=== PATIENT | male | born 1995 | race Caucasian/White ===

== ENCOUNTER 2016-09-20 21:45 | Inpatient (IN) | payer OTHER ==
[2016-09-20] MEDS ORDERED: SODIUM CHLORIDE 0.9% 1,000 ML IV STA (22:05)
[2016-09-20] MEDS ORDERED: METOCLOPRAMIDE 5 MG/ML 2 ML VIAL IVP STA (22:05)
[2016-09-20 22:16] LABS: Glucose,Whole Blood 421 mg/dL (75-99)
[2016-09-20 22:39] LABS: Basophils % (A) 0 %; CH 29.8; Eosinophils % (A) 1 %; HCT 53.7 % (39.0-53.0); HDW 2.97; HGB 17.2 gm/dL (13.0-17.5); Luc % (Auto) 1; Lymphocytes # (A) 1.6 k/uL (1.0-4.8); Lymphocytes % (A) 17 %; MCV 90.8 fL (80.0-100.0); Mean Platelet Volume 8.3; Monocytes # (A) 0.4 k/uL (0-1.0); Monocytes % (A) 4 %; Neutrophils # (A) 7.1 k/uL (1.3-7.7); Neutrophils % (A) 77 %; RBC 5.91 m/uL (4.30-5.90); RDW 15.4 % (11.5-15.5); WBC 9.3 k/uL (3.8-10.6); WBC (Perox) 9.77
[2016-09-20 22:54] LABS: ALT 45 U/L (21-72); AST 14 U/L (17-59); Alkaline Phosphatase 191 U/L (38-126); Amylase 46 U/L (30-110); Anion Gap 30 mmol/L; Blood Urea Nitrogen 12 mg/dL (9-20); Chloride 104 mmol/L (98-107); Glucose 440 mg/dL (74-99); Non-African American GFR(MDRD) >60 (>60 ml/min/1.73 sqM); Potassium 4.5 mmol/L (3.5-5.1); Sodium 139 mmol/L (137-145); Total Bilirubin 0.6 mg/dL (0.2-1.3); Total Protein 8.5 g/dL (6.3-8.2)
--- NOTE | 2016-09-20 23:15 | XR ---
EXAM: XR Abdomen, 1 View CLINICAL HISTORY: Reason: pain TECHNIQUE: Frontal supine view of the abdomen/pelvis. COMPARISON: No relevant prior studies available. FINDINGS: Gastrointestinal tract: Stool and gas throughout the colon. No dilation. Bones/joints: Unremarkable. IMPRESSION: Stool and gas throughout the colon. No acute disease or bowel obstruction.
[2016-09-20 23:23] LABS: Carbon Dioxide <5 mmol/L (22-30)
--- NOTE | 2016-09-20 23:23 | ED ---
Nausea/Vomiting/Diarrhea HPI <Andrew Candelario - Last Filed: 09/21/16 00:17> - General Source: patient Mode of arrival: ambulatory Limitations: no limitations <Joyce Suh - Last Filed: 09/21/16 00:36> - General Chief complaint: Nausea/Vomiting/Diarrhea Stated complaint: trouble digesting food/vomiting Time Seen by Provider: 09/20/16 21:58 - History of Present Illness Initial comments: 20-year-old male patient presents to emergency department today for complaints of nausea, vomiting, and general malaise for the last 2 weeks. Patient states that he feels like his stomach just feels up and causes him to vomit. Patient states that he has just felt generally unwell, states that he has been in a "mental fog", has felt very thirsty, and has had a dry mouth. Patient denies any blood in his vomit. Patient states he has been quite constipated, he has gone days sometimes without bowel movements. He states that his last vomiting was yesterday is very small and hard. He denies any fever, chills, headaches, dizziness, chest pain, back pain, shortness of breath, abdominal pain, hematuria , dysuria, urinary urgency or urinary urgency. He denies any dark, bloody, or black stools. (Joyce Suh) - Related Data Home Medications Medication Instructions Recorded Confirmed Multimin Plus 7 drops PO AC-TID 09/20/16 09/20/16 Phosphatidylcholine 100 mg PO BID 09/20/16 09/20/16 Pure Herbs-Sweet Root 40 drops PO AC-TID 09/20/16 09/20/16 Systemic Lb Liver/Gallbladder 1 cap PO AC-TID 09/20/16 09/20/16 Allergies Allergy/AdvReac Type Severity Reaction Status Date / Time No Known Allergies Allergy Verified 09/20/16 22:59 Review of Systems ROS Other: All systems not noted in ROS Statement are negative. <Andrew Cnadelario - Last Filed: 09/21/16 00:17> ROS Other: All systems not noted in ROS Statement are negative. <Joyce Suh - Last Filed: 09/21/16 00:36> ROS Statement: Those systems with pertinent positive or pertinent negative responses have been documented in the HPI. Past Medical History Past Medical History: No Reported History History of Any Multi-Drug Resistant Organisms: None Reported Past Surgical History: No Surgical Hx Reported Past Psychological History: No Psychological Hx Reported Smoking Status: Never smoker Past Alcohol Use History: Occasional Past Drug Use History: None Reported <Joyce Suh - Last Filed: 09/21/16 00:36> General Exam Limitations: no limitations General appearance: alert, in no apparent distress Head exam: Present: atraumatic, normocephalic, normal inspection Eye exam: Present: normal appearance, PERRL, EOMI. Absent: scleral icterus, conjunctival injection, periorbital swelling ENT exam: Present: normal exam, mucous membranes moist Neck exam: Present: normal inspection. Absent: tenderness, meningismus, lymphadenopathy Respiratory exam: Present: normal lung sounds bilaterally, respiratory distress (Labored breathing). Absent: wheezes, rales, rhonchi, stridor Cardiovascular Exam: Present: normal rhythm, tachycardia, normal heart sounds. Absent: systolic murmur, diastolic murmur, rubs, gallop, clicks GI/Abdominal exam: Present: soft, normal bowel sounds. Absent: distended, tenderness, guarding, rebound, rigid Extremities exam: Present: normal inspection, full ROM, normal capillary refill. Absent: tenderness, pedal edema, joint swelling, calf tenderness Back exam: Present: normal inspection Neurological exam: Present: alert, oriented X3, CN II-XII intact Psychiatric exam: Present: normal affect, normal mood Skin exam: Present: warm, dry, intact, normal color. Absent: rash <Joyce Suh - Last Filed: 09/21/16 00:36> Course <Andrew Candelario - Last Filed: 09/21/16 00:17> <Joyce Suh - Last Filed: 09/21/16 00:36> Vital Signs 09/20/16 09/20/16 09/20/16 21:51 23:09 23:55 Temperature 99.6 F 99.8 F H 99.4 F Pulse Rate 116 H 101 H 101 H Respiratory 20 18 20 Rate Blood Pressure 122/59 126/67 125/67 O2 Sat by Pulse 99 100 99 Oximetry - Reevaluation(s) Reevaluation #1: 09/21/16 00:17 I proceeded [id number] examination the patient did discuss findings with the patient and family. Patient will be admitted. I did discuss case with the admitting service. (Andrew Candelario) Medical Decision Making - Lab Data Result diagrams: 09/20/16 22:20 09/20/16 22:20 <Andrew Candelario - Last Filed: 09/21/16 00:17> - Lab Data Result diagrams: 09/20/16 22:20 09/20/16 22:20 - Radiology Data Radiology results: report reviewed, image reviewed <Joyce Suh - Last Filed: 09/21/16 00:36> - Medical Decision Making 20-year-old male patient presented to emergency department today for evaluation of nausea, vomiting, and general malaise for the last 2 weeks. Upon presentation capillary blood glucose was 421. Patient has no known history of diabetes. Blood work did show glucose level of 440, anion gap of 30. Patient will be admitted to Dr. Nance with fluid as resuscitation and insulin drip. Did discuss admission with patient and his parents. (Joyce Suh) - Lab Data Lab Results 09/20/16 09/20/16 09/20/16 Range/Units 22:13 22:20 22:20 WBC 9.3 (3.8-10.6) k/uL RBC 5.91 H (4.30-5.90) m/uL Hgb 17.2 (13.0-17.5) gm/dL Hct 53.7 H (39.0-53.0) % MCV 90.8 (80.0-100.0) fL MCH 29.0 (25.0-35.0) pg MCHC 32.0 (31.0-37.0) g/dL RDW 15.4 (11.5-15.5) % Plt Count 173 (150-450) k/uL Neutrophils % 77 % Lymphocytes % 17 % Monocytes % 4 % Eosinophils % 1 % Basophils % 0 % Neutrophils # 7.1 (1.3-7.7) k/uL Lymphocytes # 1.6 (1.0-4.8) k/uL Monocytes # 0.4 (0-1.0) k/uL Eosinophils # 0.0 (0-0.7) k/uL Basophils # 0.0 (0-0.2) k/uL Sodium 139 (137-145) mmol/L Potassium 4.5 (3.5-5.1) mmol/L Chloride 104 (98-107) mmol/L Carbon Dioxide <5 L* (22-30) mmol/L Anion Gap 30 mmol/L BUN 12 (9-20) mg/dL Creatinine 0.90 (0.66-1.25) mg/dL Est GFR (MDRD) Af Amer >60 (>60 ml/min/1.73 sqM) Est GFR (MDRD) Non-Af >60 (>60 ml/min/1.73 sqM) Glucose 440 H (74-99) mg/dL POC Glucose (mg/dL) 421 H (75-99) mg/dL POC Glu [employer] Associate ID Anastacia Bills Calcium 9.0 (8.4-10.2) mg/dL Total Bilirubin 0.6 (0.2-1.3) mg/dL AST 14 L (17-59) U/L ALT 45 (21-72) U/L Alkaline Phosphatase 191 H (38-126) U/L Total Protein 8.5 H (6.3-8.2) g/dL Albumin 5.2 H (3.5-5.0) g/dL Amylase 46 (30-110) U/L Lipase 45 (23-300) U/L Urine Color Urine Appearance (Clear) Urine pH (5.0-8.0) Ur Specific [place] (1.001-1.035) Urine Protein (Negative) Urine Glucose (UA) (Negative) Urine Ketones (Negative) Urine Blood (Negative) Urine Nitrite (Negative) Urine Bilirubin (Negative) Urine Urobilinogen (<2.0) mg/dL Ur Leukocyte Esterase (Negative) Urine RBC (0-5) /hpf Urine WBC (0-5) /hpf Ur Squamous Epith Cells (0-4) /hpf Granular Casts (0) /lpf Urine Mucus (None) /hpf Acetone, Qual Positive (Negative) 09/20/16 09/20/16 Range/Units 23:08 23:38 WBC (3.8-10.6) k/uL RBC (4.30-5.90) m/uL Hgb (13.0-17.5) gm/dL Hct (39.0-53.0) % MCV (80.0-100.0) fL MCH (25.0-35.0) pg MCHC (31.0-37.0) g/dL RDW (11.5-15.5) % Plt Count (150-450) k/uL Neutrophils % % Lymphocytes % % Monocytes % % Eosinophils % % Basophils % % Neutrophils # (1.3-7.7) k/uL Lymphocytes # (1.0-4.8) k/uL Monocytes # (0-1.0) k/uL Eosinophils # (0-0.7) k/uL Basophils # (0-0.2) k/uL Sodium (137-145) mmol/L Potassium (3.5-5.1) mmol/L Chloride (98-107) mmol/L Carbon Dioxide (22-30) mmol/L Anion Gap mmol/L BUN (9-20) mg/dL Creatinine (0.66-1.25) mg/dL Est GFR (MDRD) Af Amer (>60 ml/min/1.73 sqM) Est GFR (MDRD) Non-Af (>60 ml/min/1.73 sqM) Glucose (74-99) mg/dL POC Glucose (mg/dL) 351 H (75-99) mg/dL POC Glu [employer] Associate ID Jody Ramsay Calcium (8.4-10.2) mg/dL Total Bilirubin (0.2-1.3) mg/dL AST (17-59) U/L ALT (21-72) U/L Alkaline Phosphatase (38-126) U/L Total Protein (6.3-8.2) g/dL Albumin (3.5-5.0) g/dL Amylase (30-110) U/L Lipase (23-300) U/L Urine Color Light Yellow Urine Appearance Clear (Clear) Urine pH 5.5 (5.0-8.0) Ur Specific [place] 1.026 (1.001-1.035) Urine Protein 2+ H (Negative) Urine Glucose (UA) 4+ H (Negative) Urine Ketones 4+ H (Negative) Urine Blood Small H (Negative) Urine Nitrite Negative (Negative) Urine Bilirubin Negative (Negative) Urine Urobilinogen <2.0 (<2.0) mg/dL Ur Leukocyte Esterase Negative (Negative) Urine RBC 4 (0-5) /hpf Urine WBC 1 (0-5) /hpf Ur Squamous Epith Cells <1 (0-4) /hpf Granular Casts 225 (0) /lpf Urine Mucus Rare H (None) /hpf Acetone, Qual (Negative) 09/21/16 00:35 EKG obtained at 00 18 reveals normal sinus rhythm with a ventricular rate of 99 , CT interval 134, QRS duration 96, QT 350, QTC 449. No evidence of ST elevation or depression. (Joyce Suh) - Radiology Data KUB x-ray reveals overall nonobjective bowel gas pattern. (Joyce Suh) Disposition <Andrew Candelario - Last Filed: 09/21/16 00:17> Decision to Admit Reason: Admit from EC Decision Date: 09/20/16 Decision Time: 23:48 <Joyce Suh - Last Filed: 09/21/16 00:36> Clinical Impression: New onset type 1 diabetes mellitus, uncontrolled, Diabetic ketoacidosis Disposition: HOME SELF-CARE Condition: Fair Referrals: None,Stated [Primary Care Provider] - 1-2 days
[2016-09-20] MEDS ORDERED: SODIUM CHLORIDE 0.9% 1,000 ML IV ONE (23:33)
[2016-09-20] MEDS ORDERED: INSULIN REGULAR BOLUS (FROM DRIP BAG) IV ONE (23:33)
[2016-09-20 23:38] LABS: Glucose,Whole Blood 351 mg/dL (75-99)
[2016-09-20 23:40] LABS: Appearance,Urine Clear (Clear); Bilirubin,Urine Negative (Negative); Glucose,Urine (UA) 4+ (Negative); Granular Casts,Urine 225 /lpf (0); Leukocyte Esterase,Urine Negative (Negative); Mucus,Urine Rare /hpf; Nitrite,Urine Negative (Negative); PH, Urine 5.5 (5.0-8.0); Particle Count 1559; Protein,Urine 2+ (Negative); RBC,Urine 4 /hpf (0-5); Specific Gravity,Urine 1.026 (1.001-1.035); Squamous Epithelial Cell,Urine <1 /hpf (0-4); UA Billing (MACRO vs. MICRO) MICRO; Urobilinogen,Urine <2.0 mg/dL (<2.0); WBC,Urine 1 /hpf (0-5)
[2016-09-20 23:42] LABS: Ketones,Urine 4+ (Negative)
[2016-09-20] MEDS ORDERED: METOCLOPRAMIDE 5 MG/ML 2 ML VIAL IVP PRN (23:43)
[2016-09-20] MEDS: INSULIN REGULAR 100 UNIT in SODIUM CHLORIDE 0.9% 100 ML IV SCH (23:47)
[2016-09-21 00:46] LABS: Glucose,Whole Blood 320 mg/dL (75-99)
[2016-09-21 01:48] LABS: Glucose,Whole Blood 240 mg/dL (75-99)
[2016-09-21 02:13] LABS: Glucose,Whole Blood 237 mg/dL (75-99)
[2016-09-21] MEDS: D5-0.45% NACL WITH KCL 20MEQ/L 1,000 ML IV SCH ×3 (02:14→16:41)
[2016-09-21 02:58] LABS: Glucose,Whole Blood 237 mg/dL (75-99)
[2016-09-21 04:00] LABS: Glucose,Whole Blood 247 mg/dL (75-99)
[2016-09-21 04:24] LABS: Basophils % (A) 0 %; CH 29.9; Eosinophils % (A) 0 %; HCT 45.6 % (39.0-53.0); HDW 2.93; HGB 15.1 gm/dL (13.0-17.5); Luc # (Auto) 0.13; Luc % (Auto) 2; Lymphocytes % (A) 24 %; MCH 29.4 pg (25.0-35.0); MCHC 33.2 g/dL (31.0-37.0); MCV 88.4 fL (80.0-100.0); Mean Platelet Volume 8.2; Monocytes # (A) 0.4 k/uL (0-1.0); Monocytes % (A) 5 %; Neutrophils # (A) 5.6 k/uL (1.3-7.7); Neutrophils % (A) 69 %; RBC 5.16 m/uL (4.30-5.90); RDW 14.8 % (11.5-15.5); WBC 8.1 k/uL (3.8-10.6); WBC (Perox) 8.15
[2016-09-21 04:31] LABS: ALT 33 U/L (21-72); AST 10 U/L (17-59); Alkaline Phosphatase 134 U/L (38-126); Blood Urea Nitrogen 11 mg/dL (9-20); Calcium 8.5 mg/dL (8.4-10.2); Chloride 114 mmol/L (98-107); Glucose 262 mg/dL (74-99); Magnesium 2.1 mg/dL (1.6-2.3); Non-African American GFR(MDRD) >60 (>60 ml/min/1.73 sqM); Potassium 3.4 mmol/L (3.5-5.1); Sodium 139 mmol/L (137-145); Total Bilirubin 0.4 mg/dL (0.2-1.3); Total Protein 6.4 g/dL (6.3-8.2)
[2016-09-21 04:35] LABS: Anion Gap 18 mmol/L
[2016-09-21 04:48] LABS: Carbon Dioxide 7 mmol/L (22-30)
[2016-09-21 05:07] LABS: Glucose,Whole Blood 269 mg/dL (75-99)
[2016-09-21 06:15] LABS: Glucose,Whole Blood 239 mg/dL (75-99)
[2016-09-21 07:12] LABS: Glucose,Whole Blood 237 mg/dL (75-99)
[2016-09-21] MEDS: SODIUM CHLORIDE 0.9% 1,000 ML IV SCH ×2 (07:12→09:42)
[2016-09-21 07:58] LABS: Glucose,Whole Blood 212 mg/dL (75-99)
[2016-09-21 09:07] LABS: Glucose,Whole Blood 186 mg/dL (75-99)
[2016-09-21] MEDS: POTASSIUM CHLORIDE ER 20 MEQ TAB.ER PO SCH ×2 (09:41→11:11)
[2016-09-21 10:18] LABS: Glucose,Whole Blood 164 mg/dL (75-99)
[2016-09-21 11:09] LABS: Glucose,Whole Blood 142 mg/dL (75-99)
[2016-09-21 11:53] LABS: Anion Gap 13 mmol/L; Blood Urea Nitrogen 12 mg/dL (9-20); Calcium 8.7 mg/dL (8.4-10.2); Carbon Dioxide 11 mmol/L (22-30); Chloride 115 mmol/L (98-107); Glucose 161 mg/dL (74-99); Non-African American GFR(MDRD) >60 (>60 ml/min/1.73 sqM); Potassium 3.5 mmol/L (3.5-5.1); Sodium 139 mmol/L (137-145)
[2016-09-21 11:57] LABS: Glucose,Whole Blood 124 mg/dL (75-99)
[2016-09-21 12:19] LABS: Hemoglobin A1C 14.7 % (4.2-6.1)
[2016-09-21 13:03] VITALS: BMI 19.2
[2016-09-21 13:12] LABS: Glucose,Whole Blood 138 mg/dL (75-99)
[2016-09-21 15:04] LABS: Glucose,Whole Blood 171 mg/dL (75-99)
[2016-09-21] MEDS: INSULIN REGULAR 100 UNIT in SODIUM CHLORIDE 0.9% 100 ML IV SCH (15:05)
[2016-09-21 15:56] LABS: Glucose,Whole Blood 148 mg/dL (75-99)
[2016-09-21 16:00] LABS: Anion Gap 9 mmol/L; Blood Urea Nitrogen 11 mg/dL (9-20); Calcium 8.5 mg/dL (8.4-10.2); Carbon Dioxide 16 mmol/L (22-30); Chloride 112 mmol/L (98-107); Glucose 139 mg/dL (74-99); Non-African American GFR(MDRD) >60 (>60 ml/min/1.73 sqM); Potassium 3.5 mmol/L (3.5-5.1); Sodium 137 mmol/L (137-145)
--- NOTE | 2016-09-21 16:16 | P.HPIM ---
History of Present Illness 20-year-old man with no known history of diabetes with us came in with complaints of nausea vomiting generalized malaise has been going on for 2 weeks patient denied any fever, chills, dysuria, cough. Patient has some stomach discomfort and was throwing up. Patient was complaining of polyuria and polydipsia. Patient is found to be in DKA patient was started on DKA protocol. Presently anion gap resolved at this point of time patient has multiple other provided abnormalities which were corrected with IV fluids and supplementation of electrolytes. Patient will be transitioned to insulin. As patient doesn't have insurance we'll switch him to NPH/regular insulin regimen which is 70/30. Since he is a new onset type I diabetic he will be started on 0.3X kilogram body weight along with sliding scale with each meal and patient need to be monitored overnight since he is being newly started on insulin particularly 70/ 30 Review of Systems REVIEW OF SYSTEMS: CONSTITUTIONAL: No fever, no malaise, no fatigue. HEENT: No recent visual problems or hearing problems. Denied any sore throat. CARDIOVASCULAR: No chest pain, orthopnea, PND, no palpitations, no syncope. PULMONARY: No shortness of breath, no cough, no hemoptysis. GASTROINTESTINAL: As mentioned above NEUROLOGICAL: No headaches, no weakness, no numbness. HEMATOLOGICAL: Denies any bleeding or petechiae. GENITOURINARY: Denies any burning micturition, frequency, or urgency. MUSCULOSKELETAL/RHEUMATOLOGICAL: Denies any joint pain, swelling, or any muscle pain. ENDOCRINE: Denies any polyuria or polydipsia. The rest of the 14-point review of systems is negative. Past Medical History Past Medical History: No Reported History Additional Past Medical History / Comment(s): General Stomach issues. History of Any Multi-Drug Resistant Organisms: None Reported Past Surgical History: No Surgical Hx Reported Past Psychological History: No Psychological Hx Reported Smoking Status: Never smoker Past Alcohol Use History: Occasional Past Drug Use History: None Reported Medications and Allergies Home Medications Medication Instructions Recorded Confirmed Type Multimin Plus 7 drops PO AC-TID 09/20/16 09/20/16 History Phosphatidylcholine 100 mg PO BID 09/20/16 09/20/16 History Pure Herbs-Sweet Root 40 drops PO AC-TID 09/20/16 09/20/16 History Systemic Lb Liver/Gallbladder 1 cap PO AC-TID 09/20/16 09/20/16 History Allergies Allergy/AdvReac Type Severity Reaction Status Date / Time No Known Allergies Allergy Verified 09/20/16 22:59 Physical Exam Vitals: Vital Signs Temp Pulse Resp BP Pulse Ox 09/21/16 15:00 98.6 F 75 14 103/60 96 09/21/16 14:00 90 12 103/60 97 09/21/16 13:00 115 H 19 100/61 93 L 09/21/16 12:00 86 10 L 109/57 96 09/21/16 11:00 87 11 L 98/55 97 09/21/16 10:00 82 17 95/47 95 09/21/16 09:00 82 12 109/56 95 09/21/16 08:00 98.2 F 90 15 102/56 96 09/21/16 07:00 83 14 95/56 94 L 09/21/16 06:00 83 13 102/56 95 09/21/16 05:00 92 18 87/53 94 L 09/21/16 04:00 98.2 F 86 26 H 96/56 96 09/21/16 03:00 90 19 93/65 95 09/21/16 02:11 100 15 93/65 97 09/21/16 02:04 98 F 110 H 18 107/65 98 09/21/16 00:49 96 18 119/71 99 09/20/16 23:55 99.4 F 101 H 20 125/67 99 09/20/16 23:09 99.8 F H 101 H 18 126/67 100 09/20/16 21:51 99.6 F 116 H 20 122/59 99 Intake and Output 09/21/16 09/21/16 09/21/16 06:59 14:59 22:59 Intake Total 787.027 363.973 600 Output Total 1100 Balance 787.027 -736.027 600 Intake: IV 750 300 600 D5-0.45% NaCl with KCl 750 300 600 20Meq/l 1,000 ml @ 150 mls/hr IV .[id number] [facility] Rx# :[id number] Intake, IV Titration 37.027 63.973 Amount Insulin Regular 100 unit 37.027 63.973 In Sodium Chloride 0.9% 100 ml @ 0.1 UNITS/KG/HR 6.13 mls/hr IV .[id number] [facility] Rx#:[id number] Output: Urine 1100 Other: Weight 60.781 kg Patient Weight 09/22/16 06:59 Weight 60.781 kg PHYSICAL EXAMINATION: GENERAL: The patient is alert and oriented x3, not in any acute distress. Well developed, well nourished. HEENT: Pupils are round and equally reacting to light. EOMI. No scleral icterus. No conjunctival pallor. Normocephalic, atraumatic. No pharyngeal erythema. No thyromegaly. CARDIOVASCULAR: S1 and S2 present. No murmurs, rubs, or gallops. PULMONARY: Chest is clear to auscultation, no wheezing or crackles. ABDOMEN: Soft, nontender, nondistended, normoactive bowel sounds. No palpable organomegaly. MUSCULOSKELETAL: No joint swelling or deformity. EXTREMITIES: No cyanosis, clubbing, or pedal edema. NEUROLOGICAL: Gross neurological examination did not reveal any focal deficits. SKIN: No rashes. Results CBC & Chem 7: 09/21/16 03:55 09/21/16 15:31 Labs: Abnormal Lab Results - Last 24 Hours (Table) 09/20/16 09/20/16 09/20/16 Range/Units 22:13 22:20 22:20 RBC 5.91 H (4.30-5.90) m/uL Hct 53.7 H (39.0-53.0) % Plt Count (150-450) k/uL Potassium (3.5-5.1) mmol/L Chloride (98-107) mmol/L Carbon Dioxide <5 L* (22-30) mmol/L Creatinine (0.66-1.25) mg/dL Glucose 440 H (74-99) mg/dL POC Glucose (mg/dL) 421 H (75-99) mg/dL Hemoglobin A1c (4.2-6.1) % Phosphorus (2.5-4.5) mg/dL AST 14 L (17-59) U/L Alkaline Phosphatase 191 H (38-126) U/L Total Protein 8.5 H (6.3-8.2) g/dL Albumin 5.2 H (3.5-5.0) g/dL Urine Protein (Negative) Urine Glucose (UA) (Negative) Urine Ketones (Negative) Urine Blood (Negative) Urine Mucus (None) /[facility] 09/20/16 09/20/16 09/21/16 Range/Units 23:08 23:38 00:43 RBC (4.30-5.90) m/uL Hct (39.0-53.0) % Plt Count (150-450) k/uL Potassium (3.5-5.1) mmol/L Chloride (98-107) mmol/L Carbon Dioxide (22-30) mmol/L Creatinine (0.66-1.25) mg/dL Glucose (74-99) mg/dL POC Glucose (mg/dL) 351 H 320 H (75-99) mg/dL Hemoglobin A1c (4.2-6.1) % Phosphorus (2.5-4.5) mg/dL AST (17-59) U/L Alkaline Phosphatase (38-126) U/L Total Protein (6.3-8.2) g/dL Albumin (3.5-5.0) g/dL Urine Protein 2+ H (Negative) Urine Glucose (UA) 4+ H (Negative) Urine Ketones 4+ H (Negative) Urine Blood Small H (Negative) Urine Mucus Rare H (None) /[facility] 09/21/16 09/21/16 09/21/16 Range/Units 01:46 02:11 02:56 RBC (4.30-5.90) m/uL Hct (39.0-53.0) % Plt Count (150-450) k/uL Potassium (3.5-5.1) mmol/L Chloride (98-107) mmol/L Carbon Dioxide (22-30) mmol/L Creatinine (0.66-1.25) mg/dL Glucose (74-99) mg/dL POC Glucose (mg/dL) 240 H 237 H 237 H (75-99) mg/dL Hemoglobin A1c (4.2-6.1) % Phosphorus (2.5-4.5) mg/dL AST (17-59) U/L Alkaline Phosphatase (38-126) U/L Total Protein (6.3-8.2) g/dL Albumin (3.5-5.0) g/dL Urine Protein (Negative) Urine Glucose (UA) (Negative) Urine Ketones (Negative) Urine Blood (Negative) Urine Mucus (None) /[facility] 09/21/16 09/21/16 09/21/16 Range/Units 03:55 03:55 03:55 RBC (4.30-5.90) m/uL Hct (39.0-53.0) % Plt Count 141 L (150-450) k/uL Potassium 3.4 L (3.5-5.1) mmol/L Chloride 114 H (98-107) mmol/L Carbon Dioxide 7 L* (22-30) mmol/L Creatinine (0.66-1.25) mg/dL Glucose 262 H (74-99) mg/dL POC Glucose (mg/dL) (75-99) mg/dL Hemoglobin A1c 14.7 H (4.2-6.1) % Phosphorus 2.0 L (2.5-4.5) mg/dL AST 10 L (17-59) U/L Alkaline Phosphatase 134 H (38-126) U/L Total Protein (6.3-8.2) g/dL Albumin (3.5-5.0) g/dL Urine Protein (Negative) Urine Glucose (UA) (Negative) Urine Ketones (Negative) Urine Blood (Negative) Urine Mucus (None) /[facility] 09/21/16 09/21/16 09/21/16 Range/Units 03:58 05:06 06:13 RBC (4.30-5.90) m/uL Hct (39.0-53.0) % Plt Count (150-450) k/uL Potassium (3.5-5.1) mmol/L Chloride (98-107) mmol/L Carbon Dioxide (22-30) mmol/L Creatinine (0.66-1.25) mg/dL Glucose (74-99) mg/dL POC Glucose (mg/dL) 247 H 269 H 239 H (75-99) mg/dL Hemoglobin A1c (4.2-6.1) % Phosphorus (2.5-4.5) mg/dL AST (17-59) U/L Alkaline Phosphatase (38-126) U/L Total Protein (6.3-8.2) g/dL Albumin (3.5-5.0) g/dL Urine Protein (Negative) Urine Glucose (UA) (Negative) Urine Ketones (Negative) Urine Blood (Negative) Urine Mucus (None) /[facility] 09/21/16 09/21/16 09/21/16 Range/Units 07:10 07:57 09:05 RBC (4.30-5.90) m/uL Hct (39.0-53.0) % Plt Count (150-450) k/uL Potassium (3.5-5.1) mmol/L Chloride (98-107) mmol/L Carbon Dioxide (22-30) mmol/L Creatinine (0.66-1.25) mg/dL Glucose (74-99) mg/dL POC Glucose (mg/dL) 237 H 212 H 186 H (75-99) mg/dL Hemoglobin A1c (4.2-6.1) % Phosphorus (2.5-4.5) mg/dL AST (17-59) U/L Alkaline Phosphatase (38-126) U/L Total Protein (6.3-8.2) g/dL Albumin (3.5-5.0) g/dL Urine Protein (Negative) Urine Glucose (UA) (Negative) Urine Ketones (Negative) Urine Blood (Negative) Urine Mucus (None) /[facility] 09/21/16 09/21/16 09/21/16 Range/Units 10:16 10:51 11:07 RBC (4.30-5.90) m/uL Hct (39.0-53.0) % Plt Count (150-450) k/uL Potassium (3.5-5.1) mmol/L Chloride 115 H (98-107) mmol/L Carbon Dioxide 11 L (22-30) mmol/L Creatinine 0.60 L (0.66-1.25) mg/dL Glucose 161 H (74-99) mg/dL POC Glucose (mg/dL) 164 H 142 H (75-99) mg/dL Hemoglobin A1c (4.2-6.1) % Phosphorus (2.5-4.5) mg/dL AST (17-59) U/L Alkaline Phosphatase (38-126) U/L Total Protein (6.3-8.2) g/dL Albumin (3.5-5.0) g/dL Urine Protein (Negative) Urine Glucose (UA) (Negative) Urine Ketones (Negative) Urine Blood (Negative) Urine Mucus (None) /[facility] 09/21/16 09/21/16 09/21/16 Range/Units 11:55 13:11 15:03 RBC (4.30-5.90) m/uL Hct (39.0-53.0) % Plt Count (150-450) k/uL Potassium (3.5-5.1) mmol/L Chloride (98-107) mmol/L Carbon Dioxide (22-30) mmol/L Creatinine (0.66-1.25) mg/dL Glucose (74-99) mg/dL POC Glucose (mg/dL) 124 H 138 H 171 H (75-99) mg/dL Hemoglobin A1c (4.2-6.1) % Phosphorus (2.5-4.5) mg/dL AST (17-59) U/L Alkaline Phosphatase (38-126) U/L Total Protein (6.3-8.2) g/dL Albumin (3.5-5.0) g/dL Urine Protein (Negative) Urine Glucose (UA) (Negative) Urine Ketones (Negative) Urine Blood (Negative) Urine Mucus (None) /hpf 09/21/16 09/21/16 Range/Units 15:31 15:53 RBC (4.30-5.90) m/uL Hct (39.0-53.0) % Plt Count (150-450) k/uL Potassium (3.5-5.1) mmol/L Chloride 112 H (98-107) mmol/L Carbon Dioxide 16 L (22-30) mmol/L Creatinine (0.66-1.25) mg/dL Glucose 139 H (74-99) mg/dL POC Glucose (mg/dL) 148 H (75-99) mg/dL Hemoglobin A1c (4.2-6.1) % Phosphorus (2.5-4.5) mg/dL AST (17-59) U/L Alkaline Phosphatase (38-126) U/L Total Protein (6.3-8.2) g/dL Albumin (3.5-5.0) g/dL Urine Protein (Negative) Urine Glucose (UA) (Negative) Urine Ketones (Negative) Urine Blood (Negative) Urine Mucus (None) /hpf Thrombosis Risk Factor Assmnt - Choose All That Apply Any of the Below Risk Factors Present?: No Assessment and Plan Plan: #1 diabetic ketoacidosis: New-onset diabetes mellitus type I year IV fluid resuscitation as mentioned above Patient's anion gap closed at this point of time patient will be transitioned to subcutaneous insulin as mentioned above and will start him on diet. #2 anion gap metabolic acidosis due to diabetic ketoacidosis which resolved and patient still have some acidosis due to hyperchloremia because of which patient will be started on half-normal saline at 75 mL per hour after discontinuation of IV insulin. #3 hypokalemia: Secondary to improving acidosis and IV fluids and potassium will be supplemented.
[2016-09-21] MEDS: INSULIN NPH/REG INSULIN 70/30 300 UNIT/3 ML VIAL SQ SCH (16:40)
[2016-09-21] MEDS: SODIUM CHLORIDE 0.45% 1,000 ML IV SCH (16:41)
[2016-09-21 16:52] LABS: Glucose,Whole Blood 138 mg/dL (75-99)
[2016-09-21] MEDS: INSULIN LISPRO (humaLOG) 300 UNIT/3 ML VIAL SQ SCH ×2 (17:38→21:56)
[2016-09-21 18:14] VITALS: RESP 18
[2016-09-21 19:01] LABS: Hemoglobin A1C 14.8 % (4.2-6.1)
[2016-09-21 20:48] LABS: Glucose,Whole Blood 361 mg/dL (75-99)
[2016-09-22] MEDS: SODIUM CHLORIDE 0.45% 1,000 ML IV SCH ×2 (05:16→20:12)
[2016-09-22 06:29] LABS: Glucose,Whole Blood 238 mg/dL (75-99)
[2016-09-22] MEDS: INSULIN LISPRO (humaLOG) 300 UNIT/3 ML VIAL SQ SCH ×5 (06:35→21:15)
[2016-09-22] MEDS: INSULIN NPH/REG INSULIN 70/30 300 UNIT/3 ML VIAL SQ SCH ×2 (08:13→17:19)
[2016-09-22 11:41] LABS: Glucose,Whole Blood 412 mg/dL (75-99)
[2016-09-22] MEDS ORDERED: INSULIN REGULAR 100 UNIT/ML VIAL IV ONE (12:15)
[2016-09-22 13:43] LABS: Glucose,Whole Blood 446 mg/dL (75-99)
--- NOTE | 2016-09-22 14:43 | P.PN ---
Subjective Patient was admitted for DKA and patient was started on total of 20 units of insulin in spite of which patient blood sugars are not under control. Patient' s 70/30 dose will be increased to 20 units twice a day. Patient blood sugars went up to 400. Because of that reason I'm unable to discharge the patient with concerns of DKA with elevated blood sugars. Since patient is kelsey to insulin and slowly uptitrating insulin. Hopefully we'll be able to be discharged tomorrow. Patient denied any fever, chills, nausea, vomiting, dysuria, chest pain, new focal deficits. Objective - Vital Signs Vital signs: Vital Signs Temp 97.4 F L 09/22/16 12:00 Pulse 76 09/22/16 12:00 Resp 18 09/22/16 12:00 BP 107/57 09/22/16 12:00 Pulse Ox 97 09/22/16 12:00 Intake & Output 09/21/16 09/22/16 09/22/16 18:59 06:59 18:59 Intake Total 963.432 338 2547 Output Total 1100 Balance -136.850 121 0802 Weight 60.781 kg 54.9 kg Intake: IV 900 900 600 D5-0.45% NaCl with KCl 900 20Meq/l 1,000 ml @ 150 mls/hr IV .[id number] [facility] Rx# :[id number] Sodium Chloride 0.45% 1, 900 600 000 ml @ 75 mls/hr IV . [id number] [facility] Rx#:[id number] Intake, IV Titration 63.973 Amount Insulin Regular 100 unit 63.973 In Sodium Chloride 0.9% 100 ml @ 0.1 UNITS/KG/HR 6.13 mls/hr IV .[id number] [facility] Rx#:[id number] Oral 420 Output: Urine 1100 Other: # Voids 2 2 - Exam PHYSICAL EXAMINATION: GENERAL: The patient is alert and oriented x3, not in any acute distress. Well developed, well nourished. HEENT: Pupils are round and equally reacting to light. EOMI. No scleral icterus. No conjunctival pallor. Normocephalic, atraumatic. No pharyngeal erythema. No thyromegaly. CARDIOVASCULAR: S1 and S2 present. No murmurs, rubs, or gallops. PULMONARY: Chest is clear to auscultation, no wheezing or crackles. ABDOMEN: Soft, nontender, nondistended, normoactive bowel sounds. No palpable organomegaly. MUSCULOSKELETAL: No joint swelling or deformity. EXTREMITIES: No cyanosis, clubbing, or pedal edema. NEUROLOGICAL: Gross neurological examination did not reveal any focal deficits. SKIN: No rashes. - Labs CBC & Chem 7: 09/21/16 03:55 09/21/16 15:31 Labs: Abnormal Lab Results - Last 24 Hours (Table) 09/21/16 09/21/16 09/21/16 Range/Units 03:55 15:03 15:31 Chloride 112 H (98-107) mmol/L Carbon Dioxide 16 L (22-30) mmol/L Glucose 139 H (74-99) mg/dL POC Glucose (mg/dL) 171 H (75-99) mg/dL Hemoglobin A1c 14.8 H (4.2-6.1) % 09/21/16 09/21/16 09/21/16 Range/Units 15:53 16:50 20:47 Chloride (98-107) mmol/L Carbon Dioxide (22-30) mmol/L Glucose (74-99) mg/dL POC Glucose (mg/dL) 148 H 138 H 361 H (75-99) mg/dL Hemoglobin A1c (4.2-6.1) % 09/22/16 09/22/16 09/22/16 Range/Units 06:28 11:29 13:31 Chloride (98-107) mmol/L Carbon Dioxide (22-30) mmol/L Glucose (74-99) mg/dL POC Glucose (mg/dL) 238 H 412 H 446 H (75-99) mg/dL Hemoglobin A1c (4.2-6.1) % Assessment and Plan Plan: #1 diabetic ketoacidosis: Improved blood sugars in DKA resolved. Patient blood sugars are still not under control uptitrating NPH/regular insulin. Because of insurance issues I'm not able to start him on Lantus and Humalog regimen #2 anion gap metabolic acidosis due to diabetic ketoacidosis which resolved and patient still have some acidosis due to hyperchloremia. Elective right side looking much better today. #3 hypokalemia: Secondary to improving acidosis and IV fluids and potassium will be supplemented.
[2016-09-22 16:35] LABS: Glucose,Whole Blood 237 mg/dL (75-99)
[2016-09-22 21:08] LABS: Glucose,Whole Blood 100 mg/dL (75-99)
[2016-09-23] MEDS: INSULIN LISPRO (humaLOG) 300 UNIT/3 ML VIAL SQ SCH (06:21)
[2016-09-23 06:23] LABS: Glucose,Whole Blood 92 mg/dL (75-99)
[2016-09-23] MEDS: INSULIN NPH/REG INSULIN 70/30 300 UNIT/3 ML VIAL SQ SCH (07:28)
[2016-09-23 07:32] VITALS: BP 123/71; PULSE 96; TEMP 98.6
[2016-09-23 11:16] LABS: Glucose,Whole Blood 191 mg/dL (75-99)
--- NOTE | 2016-09-23 12:16 | P.DS ---
Providers Date of admission: 09/21/16 00:16 Attending physician: Margy Pineda Primary care physician: Stated None Hospital Course: Is admitted with DKA DKA resolved patient's blood sugars are well-controlled patient will be discharged on 16 units twice a day of NPH/regular insulin. Patient may need to around 18 units probably. Patient was asked to check blood sugars twice a day. PHYSICAL EXAMINATION: GENERAL: The patient is alert and oriented x3, not in any acute distress. Well developed, well nourished. HEENT: Pupils are round and equally reacting to light. EOMI. No scleral icterus. No conjunctival pallor. Normocephalic, atraumatic. No pharyngeal erythema. No thyromegaly. CARDIOVASCULAR: S1 and S2 present. No murmurs, rubs, or gallops. PULMONARY: Chest is clear to auscultation, no wheezing or crackles. ABDOMEN: Soft, nontender, nondistended, normoactive bowel sounds. No palpable organomegaly. MUSCULOSKELETAL: No joint swelling or deformity. EXTREMITIES: No cyanosis, clubbing, or pedal edema. NEUROLOGICAL: Gross neurological examination did not reveal any focal deficits. SKIN: No rashes. Patient Condition at Discharge: Fair Plan - Discharge Summary New Discharge Prescriptions: New Insulin NPH/Reg Insulin 70/30 [humuLIN 70/30 VIAL] 17 unit SQ AC-BID #2 vial No Action Pure Herbs-Sweet Root 40 drops PO AC-TID Phosphatidylcholine 100 mg PO BID Multimin Plus 7 drops PO AC-TID Systemic Lb Liver/Gallbladder 1 cap PO AC-TID Discharge Medication List Multimin Plus 7 drops PO AC-TID 09/20/16 [History] Phosphatidylcholine 100 mg PO BID 09/20/16 [History] Pure Herbs-Sweet Root 40 drops PO AC-TID 09/20/16 [History] Systemic Lb Liver/Gallbladder 1 cap PO AC-TID 09/20/16 [History] Insulin NPH/Reg Insulin 70/30 [humuLIN 70/30 VIAL] 17 unit SQ AC-BID #2 vial 11/01 [Rx] Follow up Appointment(s)/Referral(s): Mariann Angel MD [STAFF PHYSICIAN] - 1 Week None,Stated [Primary Care Provider] - 1-2 days Patient Instructions/Handouts: Hypoglycemia in a Person with Diabetes (DC) Discharge Disposition: HOME SELF-CARE
== END 2016-09-23 11:47 | disposition home or self-care (01) | DRG 639 ==
LOC: EC 21:45 → 6ICU 09-21 00:16 → 6SEL 09-21 17:44
PROVIDERS: ADMIT Hospitalist; ATTEND Hospitalist
DX: E10.10 Type 1 diabetes mellitus with ketoacidosis without coma (principal); E87.8 Other disorders of electrolyte and fluid balance, not elsewhere classified; K59.00 Constipation, unspecified; E87.6 Hypokalemia; Z79.4 Long term (current) use of insulin; Z71.3 Dietary counseling and surveillance; Z87.19 Personal history of other diseases of the digestive system; Z79.899 Other long term (current) drug therapy
CPT/HCPCS: 36415; 74000; 80048; 80053; 81001; 82009; 82150; 83036; 83690; 83735; 84100; 85025; 93005; 96361; 96374; 99285